=== PATIENT | female | born 1980 | race Caucasian/White ===

== ENCOUNTER 2022-12-27 14:13 | Emergency (ER) | payer MEDICARE, MEDICAID, SELFPAY ==
[2022-12-27] VITALS (7 sets, daily range): BP systolic 100–137; BP diastolic 68–84; PULSE 55–79; RESP 12–19; TEMP 36.4; O2SAT 99–100
--- NOTE | ~2022-12-27 | CT_ITS ---
EXAMINATION: CT brain wo con DATE: 12/27/2022 16:13 INDICATION: fall, trauma . TECHNIQUE: Computed tomography (CT) of the head was performed without intravenous contrast. The mA wa s adjusted according to patient size. Iterative reconstruction technique was employed. The dose-lengt h product was 605.33 mGy-cm. COMPARISON: 09/09/2013. FINDINGS: No acute intracranial hemorrhage or extra-axial fluid collection. No hydrocephalus, mass, or herniation. No acute ischemic infarct. Unremarkable dural venous sinus attenuation. No acute osseous abnormality. The aerated spaces are clear. IMPRESSION: No acute intracranial process. Reviewed, dictated and finalized at location K.
--- NOTE | ~2022-12-27 | CT_ITS ---
EXAMINATION: CT facial & cervical spine wo DATE: 12/27/2022 16:14 INDICATION: fall down stairs, trauma TECHNIQUE: Computed tomography (CT) of the maxillofacial region and cervical spine was performed with intravenous contrast. Automated exposure control and iterative reconstruction technique were employe d. The dose-length product was 446.88 mGy-cm. COMPARISON: None FINDINGS: CERVICAL: Vertebral Body Alignment: Intact. Craniocervical and atlantoaxial alignment: Moderate degenerative change. Alignment intact. Osseous structures/fracture: No evidence of a lytic or blastic process in the visualized spine. No e vidence of acute fracture. Cervical soft tissues: The paraspinal soft tissues planes are maintained. Degenerative changes: Degenerative changes, without severe neural foraminal or central canal narrowin g. FACE: Soft Tissues: Mild left frontal soft tissue swelling.. Facial bones: No acute fracture. No lytic or blastic process. Eyes: The globes are intact. The soft tissue planes of the orbits are maintained. Paranasal Sinuses: Small focus of aerated secretion in the left sphenoid sinus. Minimal inferior max illary sinus mucosal thickening.. Foreign Bodies: No radiopaque foreign bodies. Other Findings: None. IMPRESSION: No acute fracture or traumatic malalignment in the cervical spine. No acute facial bone fracture. Reviewed, dictated and finalized at location K. IMPRESSION: No acute fracture or traumatic malalignment in the cervical spine. No acute fac ial bone fracture.
[2022-12-27] MEDS: ONDANSETRON HCL ODT 4 MG TABLET PO (14:56)
[2022-12-27] MEDS: HYDROcodone/acetaminophen (*CRX) 7.5-325 MG TABLET 1 TAB PO (14:56)
--- NOTE | 2022-12-27 15:07 | ED.GENADULT ---
HPI - General Adult General Chief complaint: Head Injury <IRINEO Barber Last Filed: 12/27/22 19:35> Stated complaint: fall down stairs onto concrete floor <IRINEO Barber Last Filed: 12/27/22 19:35> Time Seen by Provider: 12/27/22 14:25 <IRINEO Barber Last Filed: 12/27/22 19:35> Source: patient <IRINEO Barber Last Filed: 12/27/22 19:35> Mode of arrival: ambulatory <IRINEO Barber Last Filed: 12/27/22 19:35> Limitations: no limitations <IRINEO Barber Last Filed: 12/27/22 19:35> History of Present Illness HPI narrative: This is a 42-year-old female presents the ED with chief complaint of a fall down 3 stairs occurring around 1100 today. Patient states she was walking backwards with slide on shoes and her foot slipped out of the shoe which caused her to fall and hit her head on the concrete floor. Patient states she landed on her left leg first. She was able to rest and take Tylenol after this, however was not having relief of her frontal headache with Tylenol. She states most of her pain is in the head and neck at this point. Feels like it radiates from the head into the neck. Reports some swelling on the left side of the forehead. Reports photophobia. Reports nausea without vomiting. Denies vision changes or diplopia. She is not on blood thinners. Denies LOC. Denies chest pain, shortness of breath. Denies numbness, weakness. <IRINEO Barber Last Filed: 12/27/22 19:35> Related Data Allergies/adverse reactions: Allergies Allergy/AdvReac Type Severity Reaction Status Date / Time vancomycin Allergy ITCHING Verified 12/27/22 15:10 <IRINEO Barber Last Filed: 12/27/22 19:35> Review of Systems Review of Systems: CONSTITUTIONAL: Denies fever, chills, or sweats. EYES: Denies visual changes, redness, or discharge. ENT: Denies rhinorrhea, congestion, sore throat, or otalgia. CARDIOVASCULAR: Denies chest pain, palpitations, or edema. RESPIRATORY: Denies cough or dyspnea. GASTROINTESTINAL: Denies abdominal pain, nausea, vomiting, or diarrhea. GENITOURINARY: Denies dysuria or hematuria. SKIN: Denies rash or itching. MUSCULOSKELETAL: Endorses neck pain. denies back pain, joint pain, or myalgia. NEUROLOGIC: Endorses headache. Denies numbness, dizziness, or weakness. PSYCHIATRIC: Denies anxiety or depression. <Migue Quintero PA-C - Last Filed: 12/27/22 19:35> Exam Narrative: GENERAL: Well-appearing, well-nourished, and in no acute distress. Presents in c-collar. HEAD: Normocephalic, atraumatic. EYES: PERRLA and EOMI. EOM's causes mild pain to the swollen area of the face. No proptosis present. ENT: Nares clear, no rhinorrhea or epistaxis. Mucous membranes moist. Oropharynx without tonsillar hypertrophy exudate or other lesions. There is mild swelling to the left periorbital and frontal facial area. NECK: Supple. No adenopathy or masses. CHEST: No respiratory distress. Clear to auscultation. No wheezes rales or rhonchi HEART: Regular rate and rhythm. No murmur heard. Normal peripheral pulses. ABDOMEN: Soft, nontender, nondistended, normal active bowel sounds. EXTREMITIES: Mild tenderness to the C-spine. No step-offs or bony deformities. No further tenderness throughout the TLS spine. MSK exam is otherwise benign. Normal range of motion. No edema. SKIN: Warm, dry, no rash. Minor abrasions to the left ankle and left elbow. No other overlying skin changes throughout the extremities. NEURO: Alert and oriented x3. No focal deficits. Coordination intact. Cranial nerves II through XII intact PSYCH: Normal mood and affect. <IRINEO Barber Last Filed: 12/27/22 19:35> Course DISPLAY FABRICATOR/PA Physician Supervision For this patient encounter, I reviewed the DISPLAY FABRICATOR or PA documentation, treatment plan, and was responsible for the medical decision making; and I had [id number] time with this patient. <Calos Berkowitz MD - Last
== END 2022-12-27 17:57 | disposition home or self-care (01) ==
PROVIDERS: Emergency Provider Physician Assistant
DX: S09.90XA Unspecified injury of head, initial encounter (principal); W10.9XXA Fall (on) (from) unspecified stairs and steps, initial encounter
CPT/HCPCS: 70450; 70486; 72125; 99284; A9270; L0140